=== PATIENT | female | born 1975 | race Caucasian/White ===

== ENCOUNTER → 2021-01-04 | Outpatient (CLI) | payer OTHER ==
[~2021-01-04] MED LIST: NORCO 7.5-3251 EACH PO
== END ==
LOC: KOH-I 09:05
DX: R10.9 Unspecified abdominal pain (principal); D73.4 Cyst of spleen; Z90.89 Acquired absence of other organs
CPT/HCPCS: 74176

== ENCOUNTER → 2022-06-27 | Outpatient (CLI) | payer OTHER | LOC: KOH-I 15:30 | DX: M43.6 Torticollis (principal); M47.812 Spondylosis without myelopathy or radiculopathy, cervical region | CPT/HCPCS: 72040 ==